=== PATIENT | female | born 1990 | race Caucasian/White ===

== ENCOUNTER 2019-10-07 12:10 | Emergency (ER) | payer OTHER ==
[~2019-10-07] VITALS: Ht 157.5 cm; Wt 82.1 kg
[2019-10-07 12:23] VITALS: Ht 157.5 cm; Wt 82.1 kg
[2019-10-07 13:44] VITALS: BP 112/79
== END 2019-10-07 13:44 | disposition home or self-care (01) ==
LOC: ED 12:10
DX: S80.01XA Contusion of right knee, initial encounter (principal); S09.8XXA Other specified injuries of head, initial encounter; V43.62XA Car passenger injured in collision with other type car in traffic accident, initial encounter; Y93.I9 Activity, other involving external motion; Y92.413 State road as the place of occurrence of the external cause; Y99.8 Other external cause status

== ENCOUNTER 2020-03-06 22:41 | Emergency (ER) | payer OTHER ==
[~2020-03-06] VITALS: Ht 157.5 cm; Wt 77.6 kg
[2020-03-06 23:04] VITALS: Ht 157.5 cm; Wt 77.6 kg
[2020-03-07 00:47] VITALS: BP 120/73
== END 2020-03-07 00:47 | disposition home or self-care (01) ==
LOC: ED 22:41
DX: O9A.211 Injury, poisoning and certain other consequences of external causes complicating pregnancy, first trimester (principal); S39.91XA Unspecified injury of abdomen, initial encounter; Z3A.10 10 weeks gestation of pregnancy; Y04.8XXA Assault by other bodily force, initial encounter; Y93.89 Activity, other specified; Y92.89 Other specified places as the place of occurrence of the external cause; Y99.8 Other external cause status
CPT/HCPCS: Q0092